=== PATIENT | female | born 1955 | race Caucasian/White ===

== ENCOUNTER 2016-09-28 01:07 | Emergency (ER) | payer BC ==
[~2016-09-28] VITALS: Ht 162.6 cm; Wt 85.8 kg
[2016-09-28 01:59] LABS: HEMATOCRIT 38.1 % (36.0-46.0); MCH 31.4 PG (29.0-34.0); MCHC 34.4 G/DL (30.0-36.0); MCV 91.4 FL (83-99); MEAN PLAT.VOLUME 9.2 uM^3 (9.5-12.4); PLATELET COUNT 256 K/uL (156-360); RBC DIS.WIDTH-CV 11.7 % (11.8-14.6); RBC DIS.WIDTH-SD 39.2 % (39-53); RED BLOOD COUNT 4.17 M/uL (3.80-5.20); WHITE BLOOD COUNT 5.7 K/uL (4.1-10.2)
[2016-09-28 02:15] LABS: CHLORIDE 109 mEq/L (99-109); POTASSIUM 3.9 mEq/L (3.7-5.4); SODIUM 141 mEq/L (136-147)
[2016-09-28 02:16] LABS: MAGNESIUM 2.2 mg/dL (1.3-2.7)
[2016-09-28 02:17] LABS: ADD MIUA? YES; BILIRUBIN NEGATIVE; BLOOD NEGATIVE; COLOR STRAW ((YELLOW)); GLUCOSE (STRIP) 50; KETONES NEGATIVE; LEUKOCYTES TRACE; NITRITE NEGATIVE; PROTEIN (STRIP) NEGATIVE; SPECIFIC GRAVITY 1.005 (1.000-1.030); UROBILINOGEN 0.2 MG/DL (0.2-1.0)
[2016-09-28 02:18] LABS: GLUCOSE 177 mg/dL (70-99)
[2016-09-28 02:19] LABS: ANION GAP 10 MEQ/L (2-14)
[2016-09-28 02:21] LABS: GFR ESTIMATE (CALCULATED) > 59 mL/min/
[2016-09-28 02:22] LABS: UREA NITROGEN (BUN) 14 mg/dL (9-23)
[2016-09-28 02:24] LABS: BACTERIA RARE /HPF; EPITHELIAL CELLS RARE /HPF; MUCUS TRACE /LPF; RED BLOOD CELLS 0-5 /HPF (0-5); UCUL ADDED? YES
[2016-09-28 02:29] LABS: TROP-I INTERPRETATION NEGATIVE; TROPONIN-I < 0.01 ng/mL (0.0-0.30)
[2016-09-28 04:17] VITALS: BP 148/67
== END 2016-09-28 04:18 | disposition home or self-care (01) ==
LOC: EME → EDBD 01:07 → EME 01:07
PROVIDERS: Emergency Medicine
DX: R00.2 Palpitations (principal); T38.0X5A Adverse effect of glucocorticoids and synthetic analogues, initial encounter
CPT/HCPCS: 71020; 71275; 80048; 81003; 83735; 84100; 84443; 84484; 85027; 85379; 87086; 93005; 99281; 99285; J7030

== ENCOUNTER → 2016-10-13 | Outpatient (CLI) | payer BC | END | disposition home or self-care (01) | LOC: RES 12:45 | DX: R06.02 Shortness of breath (principal) | CPT/HCPCS: 94060; 94726; 94729 ==